=== PATIENT | female | born 1965 | race Caucasian/White ===

== ENCOUNTER → 2024-02-01 07:22 | Outpatient (REF) | payer BC, SELFPAY | LOC: HWWDC 07:22 | PROVIDERS: ATTENDING PHYSICIAN Internal Medicine | DX: Z12.31 Encounter for screening mammogram for malignant neoplasm of breast (principal) | CPT/HCPCS: 77063; 77067 ==

== ENCOUNTER → 2024-02-02 15:19 | Outpatient (REF) | payer BC, SELFPAY | LOC: HWRAD 15:19 | PROVIDERS: ATTENDING PHYSICIAN Internal Medicine | DX: Z78.0 Asymptomatic menopausal state (principal) | CPT/HCPCS: 77080 ==